=== PATIENT | female | born 2000 | race African-American/Black ===

== ENCOUNTER 2022-05-16 05:39 | Emergency (ER) | payer OTHER ==
[~2022-05-16] VITALS: Ht 160 cm; Wt 69.0 kg
[2022-05-16 06:15] VITALS: BP 114/78
[2022-05-16] MEDS ORDERED: IBUPROFEN 600MG TABLET PO ONE (06:15)
[2022-05-16] MEDS ORDERED: IBUP-2029 MT (07:23)
== END 2022-05-16 07:36 | disposition home or self-care (01) ==
LOC: ER 05:39
DX: S90.32XA Contusion of left foot, initial encounter (principal); W22.8XXA Striking against or struck by other objects, initial encounter; Y93.89 Activity, other specified; Y92.89 Other specified places as the place of occurrence of the external cause; Y99.8 Other external cause status
CPT/HCPCS: 73630; 99283